=== PATIENT | female | born 1985 | race Caucasian/White ===

== ENCOUNTER 2016-11-29 12:09 | Emergency (ER) | payer OTHER ==
[~2016-11-29] VITALS: Ht 165.1 cm; Wt 62.3 kg
[2016-11-29 12:17] VITALS: BP 134/82; PULSE 75; RESP 16; O2SAT 100
--- NOTE | 2016-11-29 12:29 | ED.REPORT ---
HPI-Rash / Abscess Date of Service Nov 29, 2016 ED Provider: Doc,Ed MD 31-year-old female presents to the emergency room today with a 5 cm erythematous area on the right arm in the antecubital fossa, with with lymphangitis extending proximally approximately 15 cm in length 1 cm in width. Patient was at a wedding on Monday she noticed the bump in her arm at that point. She is unsure what bug may have bitten her. She states that at first she thought it may have been a mosquito but has not had a reaction like this previously to mosquito bite. This area was demarcated with black ink as of this morning. And there has been no acute migration of the erythema as of this morning. She denies fever chills nausea vomiting, swelling of the right extremity. She states that the area has been itchy. She is not experienced a bite like this previously Nursing Notes Stated Complaint: REACTION TO BUG BITE Chief Complaint: Skin Rash/Abscess Allergies: Coded Allergies: No Known Allergies (Unverified , 11/29/16) Scheduled Cephalexin (Keflex) 500 Mg Capsule 500 MG PO QID General Time Seen by MD: 12:29 Chief Complaint Rash, Red area Hx Obtained From: Patient Onset Occurred: 3 days ago Location: : Arm Quality: Itching Severity: Current: No pain currently Severity: Maximum: No pain Past Medical History Past Medical History denies Social History unremarkable Review of Systems Skin: Reports Itching, Reports Rash Complete sys rev & neg: except as marked. Physical Exam Physical Exam Notes: 5 cm well-demarcated raised area of erythema in the antecubital fossa of the right arm Extending from the area of erythema there is a 15 cm erythematous line 1 cm in width which appears to be progressing proximally. Area of erythema was demarcated with black ink Initial Vital Signs Vital Signs (First) Date Time Temp Pulse Resp B/P Pulse Ox O2 Delivery O2 Flow Rate FiO2 11/29/16 12:17 36.7 75 16 134/82 100 Room Air Initial VS: Reviewed Head / Eyes: Atraumatic, Normocephalic, PERRL ENT: Mucous membranes moist, Conjunctiva normal, No scleral icterus Neck: Supple, Non-tender, Full range of motion Respiratory: Breath sounds normal Extremities: Vascular intact, No swelling, No tenderness Neurologic: Alert, Oriented, Nonfocal Psychiatric: Mood/affect normal, Behavior normal, Normal thought content Right Upper Arm: Positive: Erythema present Right Elbow: Positive: Erythema present, Warmth present Re-Eval/Medical Decision Counseled Regarding: Diagnosis, Lab results, Need for follow-up, When/why to return to ED Discharge & Departure Impression: Primary Impression: Lymphangitis Additional Impression: Bug bite Encounter type: initial encounter Qualified Code: W57.XXXA - Bitten or stung by nonvenomous insect and other nonvenomous arthropods, initial encounter Disposition: Home Discharge Condition All VS Reviewed: Yes Condition: Stable Patient Instructions: Lymphangitis (ED) Additional Instructions: He came in today with redness and itching on the right arm which appears to be progressive. Since she had no systemic signs of illness is likely a self- limited infection and could be treated on an outpatient basis. We have prescribed a wide spectrum antibiotic to cover for possible infections that may arise as a result of this bug bite. If the area of redness is increasing beyond what is currently marked, or if you are experiencing fever, chills, nausea, vomiting, dizziness or headache please return to the emergency department at that time. Referrals: NOPCP (PCP) Attending Statement The patient was seen and examined together with Dr. Méndez on 11/29/16 and I have added additional information to the note above. Norris Haley DO Nov 29, 2016 12:29 Todd Case DO Nov 29, 2016 12:57
[2016-11-29] MEDS ORDERED: CEPH-512 PO (13:18)
[2016-11-29 13:24] VITALS: BP 122/78; PULSE 74; RESP 16; O2SAT 100
== END 2016-11-29 13:25 | disposition home or self-care (01) ==
LOC: SED 12:09
DX: I89.1 Lymphangitis (principal); W57.XXXA Bitten or stung by nonvenomous insect and other nonvenomous arthropods, initial encounter; Y93.89 Activity, other specified; Y92.89 Other specified places as the place of occurrence of the external cause; Y99.8 Other external cause status